=== PATIENT | female | born 1945 | race Two or more races ===

== ENCOUNTER 2019-08-11 15:29 | Emergency (ER) | payer OTHER ==
[2019-08-11 15:41] VITALS: BMI 21.5
--- NOTE | 2019-08-11 16:26 | PDOC ---
History of Present Illness - General Chief Complaint: Injury Stated Complaint: FALL Time Seen by Provider: 08/11/19 16:08 - History of Present Illness Initial Comments: Ms. Jc is a 74 y/o with PMH significant for cirrhosis, s/p left hip replacement after fracture from fall end of June, presenting today s/p fall. Reports that she was at the physical therapist when she didn't fully gain her balance and fell backwards. Hit the back of her head. No LOC. No nausea/ vomiting. Denies headache or neck pain at this time. Denies heart palpitations or chest pain. Denies dizziness. Denies shortness of breath. Denies abdominal pain. Denies dysuria or hematuria. Denies leg swelling. Pt lives at home with family and currently ambulates with assistance ( wheelchair and assisted walking). Past History - Past Medical History Allergies/Adverse Reactions: Allergies Allergy/AdvReac Type Severity Reaction Status Date / Time codeine Allergy Verified 08/11/19 15:37 Home Medications: Ambulatory Orders Aripiprazole 15 mg PO HS 08/11/19 Docusate Sodium [Docusate 100 mg] 1 tab PO TID 08/11/19 Ergocalciferol [Vitamin D2] 50,000 unit PO Q7D@1000 08/11/19 Ferrous Gluconate [Fergon -] 324 mg PO BID 08/11/19 Fluticasone/Vilanterol [Breo Ellipta 100-25 Mcg INH] 1 inh IN DAILY 08/11/19 Furosemide 40 mg PO DAILY 08/11/19 Hydroxyzine HCl 25 mg PO DAILY PRN 08/11/19 Lactulose 30 ml PO PRN PRN 08/11/19 Multivitamin [Multiple Vitamins] 1 tab PO DAILY 08/11/19 Pantoprazole Sodium [Protonix] 40 mg PO DAILY 08/11/19 Rifaximin [Xifaxan] 550 mg PO BID 08/11/19 Sertraline HCl [Zoloft] 100 mg PO DAILY 08/11/19 Thiamine HCl [Vitamin B1] 100 mg PO DAILY 08/11/19 propRANOLol HCL [Inderal -] 10 mg PO TID 08/11/19 - Psycho Social/Smoking Cessation Hx Smoking History: Unknown if ever smoked Hx Alcohol Use: No Drug/Substance Use Hx: No Review of Systems - Review of Systems Comments:: GENERAL/CONSTITUTIONAL: No fever or chills. No weakness._ HEAD, EYES, EARS, NOSE AND THROAT: No change in vision. No change in hearing. No sore throat._ CARDIOVASCULAR: No chest pain or shortness of breath_ RESPIRATORY: Denies cough, hemoptysis_ GASTROINTESTINAL: No nausea, vomiting, diarrhea or constipation._ GENITOURINARY: No dysuria, frequency, or change in urination._ MUSCULOSKELETAL: No joint or muscle swelling or pain. No neck or back pain._ SKIN: No rash_ NEUROLOGIC: No headache, vertigo, loss of consciousness, or change in strength/ sensation._ ENDOCRINE: No increased thirst. No abnormal weight change_ HEMATOLOGIC/LYMPHATIC: No anemia, easy bleeding, or history of blood clots._ ALLERGIC/IMMUNOLOGIC: No hives or skin allergy._ *Physical Exam - Vital Signs Last Vital Signs Temp Pulse Resp BP Pulse Ox 80 20 130/61 94 L 08/11/19 15:39 08/11/19 15:39 08/11/19 15:39 08/11/19 15:39 - Physical Exam GENERAL: Awake, alert, and oriented to person/place/time, in no acute distress_ HEAD: No signs of trauma, normocephalic, atraumatic _ EYES: PERRLA, EOMI, sclera anicteric, conjunctiva clear_ ENT: Hearing grossly normal, nares patent, oropharynx clear without exudates. No uvular deviation. Moist mucosa. NECK: Normal ROM, supple, no lymphadenopathy, JVD, or masses. No c-spine TTP. LUNGS: No distress, speaks in full sentences, clear to auscultation bilaterally _ HEART: Regular rate and rhythm, normal S1 and S2, no murmurs appreciated, peripheral pulses normal and equal bilaterally._ ABDOMEN: Soft, nontender, normoactive bowel sounds. No guarding, no rebound. No masses_ EXTREMITIES: Mild TTP left knee with no obvious deformity or bruising. No hip pain. Pelvis stable. Full passive range of motion, no edema. No clubbing or cyanosis. NEUROLOGICAL: Cranial nerves II through XII grossly intact. Normal speech, no focal sensorimotor deficits. SKIN: Warm, Dry, normal turgor, no rashes or lesions noted_ Medical Decision Making - Medical Decision Making 08/11/19 16:27 74F presenting s/p mechanical fall while at physical therapy today. S/p left hip replacement end of June. Admitted in Jul. for sepsis/multi focal pna. -ct head and neck -XR hip/pelvis and knee 08/11/19 17:49 XR left hip and left knee show no acute fracture. 08/11/19 19:34 CT head negative for acute intra cranial pathology. CT neck negative for fracture. Partial imaging of pulmonary apices showing mild bilateral ground glass attenuation. Pt is on O2 at home. States that she has no shortness of breath. Plan to d/c home with PCP f/u prn. Pt has good social support at home. All questions answered. Return precautions given. Pt and family verbalized understanding and agreement with plan. Discharge - Discharge Information Problems reviewed: Yes Clinical Impression/Diagnosis: Fall Condition: Stable Disposition: HOME - Admission No - Follow up/Referral Referrals: Donald Saravia MD [Staff Physician] - - Patient Discharge Instructions Patient Printed Discharge Instructions: How to Prevent Falls Additional Instructions: Your CT scans and x-rays today did not show any acute fracture or bleed. Please follow up with your primary care doctor as needed. If you experience any new, worsening, or concerning symptoms, please return to the emergency room. - Post Discharge Activity
[2019-08-11 19:29] VITALS: BP 131/75; PULSE 90
--- NOTE | 2019-08-11 19:38 | PDOC ---
Attending Attestation - Resident Resident Name: John Chou - ED Attending Attestation I have performed the following: I have examined & evaluated the patient, The case was reviewed & discussed with the resident, I agree w/resident's findings & plan, Exceptions are as noted - HPI HPI: 08/11/19 19:35 74-year-old female history of cirrhosis recent hip replacement here today status post fall physical therapy patient was a physical therapy had stood up from her wheelchair the physical therapist had turned her back for 1 second the patient fell back and hit her head denies any LOC does have chronic hip pain since her surgery but nothing new since her fall no chest pain no shortness of breath precipitating no dysrhythmia or palpitations. Did not sustain a laceration to the back of her head no other current complaints - Physicial Exam PE: 08/11/19 19:37 Patient is awake alert no acute distress posterior scalp is unremarkable without any hematoma mild tenderness there is no midline cervical spinal tenderness lungs are clear bilaterally heart is regular with any murmurs rubs or gallops abdomen is soft and nontender extremities are warm and well-perfused skin is warm and dry no rash neurologic patient is awake alert and oriented x3 moving all 4 extremities - Medical Decision Making 08/11/19 19:37 74-year-old female history of cirrhosis recent hip replacement status post fall physical therapy plan x-ray of the pelvis and bilateral hips to rule out acute fracture or malalignment of her hardware CT head and cervical spine to rule any intracranial injuries from her fall basic labs and EKG 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
== END 2019-08-11 19:47 | disposition home or self-care (01) ==
LOC: JER 15:29 → FER 15:29 → JER 19:47
DX: Z04.3 Encounter for examination and observation following other accident (principal); K74.60 Unspecified cirrhosis of liver; Z96.642 Presence of left artificial hip joint; Z88.6 Allergy status to analgesic agent
CPT/HCPCS: 70450-TC; 72125-TC; 73523-TC-FY; 73562-TC-LT-FY; 99284-25

== ENCOUNTER 2019-09-03 19:54 | Inpatient (IN) | payer OTHER ==
[2019-09-03 20:09] VITALS: BMI 25.5
[2019-09-03 21:25] LABS: BASO % 0.1 % (0-2.0); EOS % 0.5 % (0-4.5); HEMATOCRIT 44.6 % (32.4-45.2); HEMOGLOBIN 14.7 GM/dL (10.7-15.3); LYMPH % 11.7 % (8-40); MCH 29.7 pg (25.7-33.7); MCHC 32.9 g/dl (32.0-36.0); MEAN CELL VOLUME 90.4 fl (80-96); MEAN PLT VOLUME 10.4 fl (7.5-11.1); MONO % 6.9 % (3.8-10.2); NEUT % 80.8 % (42.8-82.8); PLATELET COUNT 100 K/MM3 (134-434); RBC 4.93 M/mm3 (3.60-5.2); RDW 16.5 % (11.6-15.6); WHITE BLOOD COUNT 11.3 K/mm3 (4.0-10.0)
[2019-09-03 21:50] LABS: ALBUMIN 2.8 g/dl (3.4-5.0); BILIRUBIN,TOTAL 1.2 mg/dL (0.2-1); BLOOD UREA NITROGEN 21.4 mg/dL (7-18); CALCIUM 8.4 mg/dL (8.5-10.1); CREATININE 0.8 mg/dL (0.55-1.3); TOT PROT 6.7 g/dl (6.4-8.2)
[2019-09-03 21:54] LABS: POTASSIUM 2.4 mmol/L (3.5-5.1)
[2019-09-03 21:59] LABS: INR 1.06 (0.83-1.09); PROTHROMBIN TIME (PATIENT) 12.5 SEC (9.7-13.0)
[2019-09-03 22:01] LABS: ACTIVATED PTT 25.6 SECONDS (25.2-36.5)
[2019-09-03] MEDS ORDERED: POTASSIUM CHLORIDE 20 MEQ PREMIX IVPB 100 ML IVPB ONE (22:47)
[2019-09-03 23:04] LABS: MAGNESIUM 1.9 mg/dL (1.8-2.4); PHOSPHOROUS 1.9 mg/dL (2.5-4.9)
[2019-09-03] MEDS ORDERED: SODIUM CHLORIDE 0.9% 500 ML INFUS.BAG IV ONE (23:04)
[2019-09-03] MEDS ORDERED: KCL 10 MEQ IVPB 10 MEQ/100 ML INFUS.BAG IVPB SCH ×2 (23:15→23:56)
[2019-09-03 23:20] LABS: URINE APPEARANCE CLEAR; URINE BILIRUBIN NEGATIVE (NEGATIVE); URINE COLOR YELLOW; URINE GLUCOSE (UA) NEGATIVE (NEGATIVE); URINE KETONE NEGATIVE (NEGATIVE); URINE LEUK ESTERASE NEGATIVE (NEGATIVE); URINE NITRITE NEGATIVE (NEGATIVE); URINE PROTEIN NEGATIVE (NEGATIVE); URINE UROBILINOGEN 0.2 mg/dL (0.2-1.0)
[2019-09-03] MEDS ORDERED: POTASSIUM CHLORIDE ORAL LIQUID 20 MEQ/15 ML ONE (23:24)
[2019-09-03] MEDS ORDERED: KCL 10 MEQ IVPB 20 MEQ/200 ML INFUS.BAG IVPB ONE (23:25)
[2019-09-03] MEDS ORDERED: POTASSIUM CHLORIDE ORAL LIQUID 20 MEQ/15 ML PO ONE (23:54)
[2019-09-04] MEDS ORDERED: LACTULOSE 20 GM/30 ML UDC (FOR ORAL USE ONLY) PO PRN (01:08)
[2019-09-04] MEDS ORDERED: POTASSIUM PHOSPHATE 30 MM in DEXTROSE 5%-WATER - 250 ML IVPB ONE (01:30)
[2019-09-04] MEDS: SODIUM CHLORIDE 1,000 ML IV SCH (01:36)
[2019-09-04] MEDS ORDERED: PATIENT'S OWN MEDICATION (NON-FORMULARY) (Lactulose [Lactulose] 30 ML) PO PRN (01:43)
[2019-09-04] MEDS ORDERED: predniSONE 10 MG TABLET (UD) PO SCH (01:45)
[2019-09-04] MEDS ORDERED: KCL 10 MEQ IVPB 10 MEQ/100 ML INFUS.BAG IVPB ONE ×3 (01:54→17:17)
[2019-09-04] MEDS: KCL 10 MEQ IVPB 10 MEQ/100 ML INFUS.BAG IVPB SCH ×7 (02:01→17:25)
[2019-09-04] MEDS ORDERED: CEFTRIAXONE 2 GM-D5W BAG 2 GM/50 ML BAG IVPB SCH (03:42)
[2019-09-04] MEDS ORDERED: FOLIC ACID 5 MG/1 ML SQ ONE (03:48)
[2019-09-04] MEDS: RIFAXIMIN 550 MG TABLET (UD) PO SCH ×3 (04:00→21:41)
[2019-09-04] MEDS ORDERED: CEFTRIAXONE 2 GM in DEXTROSE 5%-WATER 100 ML IVPB SCH (05:01)
[2019-09-04] MEDS: CEFTRIAXONE 2 GM in DEXTROSE 5%-WATER 100 ML IVPB SCH (06:06)
[2019-09-04 07:41] LABS: ARTERIAL BLD GAS O2 SATURATION 98.8 % (95-98); ARTERIAL BLOOD GAS BASE EXCESS 8.5 meq/l (-2-2); ARTERIAL BLOOD GAS PCO2 41.7 mmHg (35-45); ARTERIAL BLOOD GAS PO2 161 mmHg (80-100)
[2019-09-04 07:54] LABS: ALLENS TEST POSITIVE
[2019-09-04] MEDS ORDERED: SERTRALINE HCL 50 MG TABLET (FP) PO SCH (10:00)
[2019-09-04] MEDS ORDERED: THIAMINE HCL 100 MG TABLET (FP) PO SCH (10:00)
[2019-09-04] MEDS ORDERED: RIFAXIMIN 550 MG TABLET (UD) PO SCH (10:00)
[2019-09-04] MEDS ORDERED: methylPREDNISolone NA SUCC 40 MG/1 ML VIAL ONE (10:25)
[2019-09-04] MEDS ORDERED: THIAMINE HCL 200 MG/2 ML VIAL ONE (10:25)
[2019-09-04] MEDS ORDERED: ENOXAPARIN NA (PORCINE) 40 MG/0.4 ML DISP.SYRIN SQ ONE (10:25)
[2019-09-04] MEDS: THIAMINE HCL 200 MG/2 ML VIAL IVPB SCH (10:51)
[2019-09-04] MEDS: ENOXAPARIN NA (PORCINE) 40 MG/0.4 ML DISP.SYRIN SQ SCH (10:51)
[2019-09-04] MEDS: methylPREDNISolone NA SUCC 40 MG/1 ML VIAL IVPUSH SCH (10:51)
[2019-09-04 11:02] LABS: BASO % 0.1 % (0-2.0); HEMOGLOBIN 12.8 GM/dL (10.7-15.3); LYMPH % 14.1 % (8-40); MCH 29.2 pg (25.7-33.7); MCHC 32.8 g/dl (32.0-36.0); MEAN CELL VOLUME 89.2 fl (80-96); MEAN PLT VOLUME 10.4 fl (7.5-11.1); MONO % 10.4 % (3.8-10.2); NEUT % 74.4 % (42.8-82.8); PLATELET COUNT 93 K/MM3 (134-434); RBC 4.37 M/mm3 (3.60-5.2); WHITE BLOOD COUNT 11.2 K/mm3 (4.0-10.0)
[2019-09-04 11:29] LABS: ALBUMIN 2.2 g/dl (3.4-5.0); BILIRUBIN,TOTAL 0.9 mg/dL (0.2-1); BLOOD UREA NITROGEN 20.3 mg/dL (7-18); CALCIUM 7.8 mg/dL (8.5-10.1); CREATININE 0.5 mg/dL (0.55-1.3); PHOSPHOROUS 2.3 mg/dL (2.5-4.9); TOT PROT 5.5 g/dl (6.4-8.2)
[2019-09-04 11:30] LABS: POTASSIUM 2.6 mmol/L (3.5-5.1)
[2019-09-04] MEDS ORDERED: KCL 10 MEQ IVPB 20 MEQ/200 ML INFUS.BAG IVPB ONE (12:16)
[2019-09-04] MEDS: LACTULOSE 20 GM/30 ML UDC (FOR RECTAL USE ONLY) PR SCH ×2 (15:50→21:18)
[2019-09-04 22:42] LABS: VENOUS BASE EXCESS 7.8 meq/l (-2-2); VENOUS PC02 57.2 mmHg (38-52); VENOUS PH 7.39 (7.31-7.41)
[2019-09-04 22:44] LABS: VENOUS PO2 < 49 mmHg (28-48)
[2019-09-04] MEDS ORDERED: POTASSIUM CHLORIDE ORAL LIQUID 20 MEQ/15 ML PO ONE (22:50)
[2019-09-05] MEDS: SODIUM CHLORIDE 1,000 ML IV SCH (00:15)
[2019-09-05 08:17] LABS: BASO % 0.4 % (0-2.0); EOS % 0.6 % (0-4.5); HEMOGLOBIN 12.2 GM/dL (10.7-15.3); LYMPH % 18.3 % (8-40); MCH 29.7 pg (25.7-33.7); MCHC 33.1 g/dl (32.0-36.0); MEAN CELL VOLUME 89.7 fl (80-96); MEAN PLT VOLUME 10.1 fl (7.5-11.1); MONO % 10.3 % (3.8-10.2); NEUT % 70.4 % (42.8-82.8); PLATELET COUNT 65 K/MM3 (134-434); RBC 4.12 M/mm3 (3.60-5.2); RDW 16.5 % (11.6-15.6); WHITE BLOOD COUNT 9.5 K/mm3 (4.0-10.0)
[2019-09-05] MEDS ORDERED: DEXTROSE 5%-WATER 100 ML IVPB ONE (11:24)
[2019-09-05] MEDS ORDERED: PT OWN MED DRAWER 7, Y5N ONE ×2 (11:24→20:42)
[2019-09-05] MEDS: ENOXAPARIN NA (PORCINE) 40 MG/0.4 ML DISP.SYRIN SQ SCH (11:30)
[2019-09-05] MEDS: LACTULOSE 20 GM/30 ML UDC (FOR ORAL USE ONLY) PO SCH ×4 (11:30→21:03)
[2019-09-05] MEDS: THIAMINE HCL 200 MG/2 ML VIAL IVPB SCH (11:30)
[2019-09-05] MEDS: methylPREDNISolone NA SUCC 40 MG/1 ML VIAL IVPUSH SCH (11:30)
[2019-09-05] MEDS: CEFTRIAXONE 2 GM in DEXTROSE 5%-WATER 100 ML IVPB SCH (11:30)
[2019-09-05] MEDS: LACTULOSE 20 GM/30 ML UDC (FOR RECTAL USE ONLY) PR SCH ×4 (11:47→19:19)
[2019-09-05] MEDS: RIFAXIMIN 550 MG TABLET (UD) PO SCH ×2 (11:47→21:03)
[2019-09-05 13:54] LABS: ALBUMIN 2.3 g/dl (3.4-5.0); BILIRUBIN,TOTAL 1.4 mg/dL (0.2-1); BLOOD UREA NITROGEN 20.9 mg/dL (7-18); CALCIUM 8.1 mg/dL (8.5-10.1); CREATININE 0.4 mg/dL (0.55-1.3); MAGNESIUM 1.9 mg/dL (1.8-2.4); PHOSPHOROUS 2.4 mg/dL (2.5-4.9); POTASSIUM 3.1 mmol/L (3.5-5.1); TOT PROT 5.4 g/dl (6.4-8.2)
[2019-09-05 13:59] LABS: INR 1.14 (0.83-1.09); PROTHROMBIN TIME (PATIENT) 13.5 SEC (9.7-13.0)
[2019-09-05 14:02] LABS: ACTIVATED PTT 28.1 SECONDS (25.2-36.5)
[2019-09-05] MEDS ORDERED: POTASSIUM CHLORIDE TABS 20 MEQ TABLET.ER (FP) PO ONE ×2 (14:15→17:11)
[2019-09-05] MEDS ORDERED: POTASSIUM CHLORIDE ORAL LIQUID 20 MEQ/15 ML PO ONE (16:00)
[2019-09-05] MEDS ORDERED: ALBUTEROL SO4 HFA INHALER IH PRN (17:16)
[2019-09-06] MEDS: SODIUM CHLORIDE 1,000 ML IV SCH (06:54)
[2019-09-06 06:56] LABS: BASO % 0.2 % (0-2.0); EOS % 0.4 % (0-4.5); HEMATOCRIT 37.4 % (32.4-45.2); HEMOGLOBIN 12.4 GM/dL (10.7-15.3); LYMPH % 12.8 % (8-40); MCH 29.7 pg (25.7-33.7); MCHC 33.2 g/dl (32.0-36.0); MEAN CELL VOLUME 89.5 fl (80-96); MONO % 8.6 % (3.8-10.2); PLATELET COUNT 114 K/MM3 (134-434); RBC 4.18 M/mm3 (3.60-5.2); RDW 16.5 % (11.6-15.6); WHITE BLOOD COUNT 11.4 K/mm3 (4.0-10.0)
[2019-09-06 07:35] LABS: ALBUMIN 2.2 g/dl (3.4-5.0); CALCIUM 8.2 mg/dL (8.5-10.1); CREATININE 0.8 mg/dL (0.55-1.3); POTASSIUM 3.4 mmol/L (3.5-5.1); TOT PROT 5.4 g/dl (6.4-8.2)
[2019-09-06] MEDS ORDERED: POTASSIUM CHLORIDE TABS 20 MEQ TABLET.ER (FP) PO ONE (07:39)
[2019-09-06] MEDS ORDERED: DEXTROSE 5%-WATER 100 ML IVPB ONE (08:36)
[2019-09-06] MEDS: LACTULOSE 20 GM/30 ML UDC (FOR RECTAL USE ONLY) PR SCH ×3 (09:15→16:10)
[2019-09-06] MEDS: ENOXAPARIN NA (PORCINE) 40 MG/0.4 ML DISP.SYRIN SQ SCH (10:37)
[2019-09-06] MEDS: CEFTRIAXONE 2 GM in DEXTROSE 5%-WATER 100 ML IVPB SCH (10:37)
[2019-09-06] MEDS: LACTULOSE 20 GM/30 ML UDC (FOR ORAL USE ONLY) PO SCH ×4 (10:41→22:03)
[2019-09-06] MEDS: RIFAXIMIN 550 MG TABLET (UD) PO SCH ×2 (10:41→22:02)
[2019-09-06] MEDS ORDERED: PT OWN MED DRAWER 7, Y5N ONE ×2 (11:11→20:41)
[2019-09-06] MEDS ORDERED: POTASSIUM CHLORIDE ORAL LIQUID 20 MEQ/15 ML PO ONE (11:15)
[2019-09-06] MEDS: THIAMINE HCL 200 MG/2 ML VIAL IVPB SCH (11:48)
[2019-09-06] MEDS: POTASSIUM CHLORIDE TABS 20 MEQ TABLET.ER (FP) PO SCH (16:09)
[2019-09-07] MEDS: SODIUM CHLORIDE 1,000 ML IV SCH ×2 (07:05→22:06)
[2019-09-07 07:56] LABS: BASO % 0.4 % (0-2.0); EOS % 1.8 % (0-4.5); HEMATOCRIT 39.8 % (32.4-45.2); LYMPH % 19.7 % (8-40); MCH 29.7 pg (25.7-33.7); MCHC 32.7 g/dl (32.0-36.0); MEAN CELL VOLUME 90.8 fl (80-96); MEAN PLT VOLUME 10.2 fl (7.5-11.1); MONO % 9.1 % (3.8-10.2); PLATELET COUNT 86 K/MM3 (134-434); RBC 4.38 M/mm3 (3.60-5.2); RDW 16.9 % (11.6-15.6)
[2019-09-07 08:31] LABS: ALBUMIN 2.2 g/dl (3.4-5.0); BILIRUBIN,TOTAL 0.9 mg/dL (0.2-1); BLOOD UREA NITROGEN 17.1 mg/dL (7-18); CALCIUM 8.2 mg/dL (8.5-10.1); CREATININE 0.8 mg/dL (0.55-1.3); POTASSIUM 3.8 mmol/L (3.5-5.1); TOT PROT 5.4 g/dl (6.4-8.2)
[2019-09-07] MEDS ORDERED: DEXTROSE 5%-WATER 100 ML IVPB ONE (10:13)
[2019-09-07] MEDS ORDERED: PT OWN MED DRAWER 7, Y5N ONE ×3 (10:13→21:54)
[2019-09-07] MEDS: ENOXAPARIN NA (PORCINE) 40 MG/0.4 ML DISP.SYRIN SQ SCH (10:16)
[2019-09-07] MEDS: LACTULOSE 20 GM/30 ML UDC (FOR ORAL USE ONLY) PO SCH ×4 (10:16→22:06)
[2019-09-07] MEDS: RIFAXIMIN 550 MG TABLET (UD) PO SCH ×2 (10:17→22:06)
[2019-09-07] MEDS: CEFTRIAXONE 2 GM in DEXTROSE 5%-WATER 100 ML IVPB SCH (12:28)
[2019-09-07 13:40] LABS: BF WBC & OTHER NUCLEATED CELLS 91 /mm3
[2019-09-07 13:48] LABS: BODY FLUID MONOCYTE 35 %
[2019-09-07] MEDS: THIAMINE HCL 200 MG/2 ML VIAL IVPB SCH (14:25)
[2019-09-08 07:30] LABS: BASO % 0.4 % (0-2.0); EOS % 1.8 % (0-4.5); HEMATOCRIT 38.6 % (32.4-45.2); HEMOGLOBIN 12.6 GM/dL (10.7-15.3); LYMPH % 21.3 % (8-40); MCH 29.6 pg (25.7-33.7); MCHC 32.6 g/dl (32.0-36.0); MEAN CELL VOLUME 90.7 fl (80-96); MEAN PLT VOLUME 10.2 fl (7.5-11.1); MONO % 7.2 % (3.8-10.2); NEUT % 69.3 % (42.8-82.8); PLATELET COUNT 69 K/MM3 (134-434); RBC 4.26 M/mm3 (3.60-5.2); RDW 16.9 % (11.6-15.6); WHITE BLOOD COUNT 7.3 K/mm3 (4.0-10.0)
[2019-09-08] MEDS: SODIUM CHLORIDE 1,000 ML IV SCH ×2 (07:31→14:53)
[2019-09-08 07:53] LABS: BLOOD UREA NITROGEN 14.5 mg/dL (7-18); CREATININE 0.7 mg/dL (0.55-1.3); POTASSIUM 3.5 mmol/L (3.5-5.1)
[2019-09-08 07:54] LABS: BILIRUBIN,TOTAL 1.4 mg/dL (0.2-1); CALCIUM 7.8 mg/dL (8.5-10.1)
[2019-09-08] MEDS ORDERED: PT OWN MED DRAWER 7, Y5N ONE (09:11)
[2019-09-08] MEDS ORDERED: DEXTROSE 5%-WATER 100 ML IVPB ONE (09:12)
[2019-09-08] MEDS: CEFTRIAXONE 2 GM in DEXTROSE 5%-WATER 100 ML IVPB SCH (09:47)
[2019-09-08] MEDS: THIAMINE HCL 200 MG/2 ML VIAL IVPB SCH (09:51)
[2019-09-08] MEDS: LACTULOSE 20 GM/30 ML UDC (FOR ORAL USE ONLY) PO SCH ×2 (09:51→21:21)
[2019-09-08] MEDS: ENOXAPARIN NA (PORCINE) 40 MG/0.4 ML DISP.SYRIN SQ SCH (09:51)
[2019-09-08] MEDS: RIFAXIMIN 550 MG TABLET (UD) PO SCH ×2 (09:52→21:21)
[2019-09-08] MEDS ORDERED: LACTULOSE 20 GM/30 ML UDC (FOR ORAL USE ONLY) PO PRN (11:40)
[2019-09-08] MEDS: SPIRONOLACTONE 25 MG TABLET PO SCH (12:38)
[2019-09-08] MEDS: FUROSEMIDE 40 MG TABLET (FP) PO SCH (12:38)
[2019-09-09] MEDS: SODIUM CHLORIDE 1,000 ML IV SCH (05:40)
[2019-09-09] MEDS: LACTULOSE 20 GM/30 ML UDC (FOR ORAL USE ONLY) PO SCH ×3 (06:35→21:01)
[2019-09-09 07:38] LABS: BASO % 0.6 % (0-2.0); EOS % 1.9 % (0-4.5); HEMATOCRIT 38.3 % (32.4-45.2); HEMOGLOBIN 12.5 GM/dL (10.7-15.3); LYMPH % 23.5 % (8-40); MCH 29.5 pg (25.7-33.7); MCHC 32.6 g/dl (32.0-36.0); MEAN CELL VOLUME 90.7 fl (80-96); MEAN PLT VOLUME 10.2 fl (7.5-11.1); MONO % 6.1 % (3.8-10.2); NEUT % 67.9 % (42.8-82.8); PLATELET COUNT 69 K/MM3 (134-434); RBC 4.22 M/mm3 (3.60-5.2); RDW 17.4 % (11.6-15.6); WHITE BLOOD COUNT 7.2 K/mm3 (4.0-10.0)
[2019-09-09] MEDS ORDERED: PT OWN MED DRAWER 7, Y5N ONE ×3 (08:34→20:54)
[2019-09-09 08:56] LABS: BILIRUBIN,TOTAL 1.2 mg/dL (0.2-1); BLOOD UREA NITROGEN 14.7 mg/dL (7-18); CALCIUM 8.1 mg/dL (8.5-10.1); CREATININE 0.7 mg/dL (0.55-1.3); POTASSIUM 3.4 mmol/L (3.5-5.1)
[2019-09-09] MEDS: THIAMINE HCL 200 MG/2 ML VIAL IVPB SCH (09:11)
[2019-09-09] MEDS: RIFAXIMIN 550 MG TABLET (UD) PO SCH ×2 (09:11→21:00)
[2019-09-09] MEDS: FUROSEMIDE 40 MG TABLET (FP) PO SCH (09:11)
[2019-09-09] MEDS: ENOXAPARIN NA (PORCINE) 40 MG/0.4 ML DISP.SYRIN SQ SCH (09:11)
[2019-09-09] MEDS: SPIRONOLACTONE 25 MG TABLET PO SCH (09:11)
[2019-09-09] MEDS ORDERED: POTASSIUM CHLORIDE ORAL LIQUID 20 MEQ/15 ML PO ONE (11:30)
[2019-09-09] MEDS ORDERED: levETIRAcetam 500 MG/5 ML INJECTION VIAL IVPB ONE ×2 (20:22→20:24)
[2019-09-09] MEDS ORDERED: POTASSIUM CHLORIDE 20 MEQ PREMIX IVPB 100 ML IVPB ONE (20:26)
[2019-09-09] MEDS ORDERED: POTASSIUM CHLORIDE TABS 20 MEQ TABLET.ER (FP) PO ONE (20:27)
[2019-09-09] MEDS: KCL 10 MEQ IVPB 10 MEQ/100 ML INFUS.BAG IVPB SCH ×2 (20:55→22:29)
[2019-09-09 21:53] LABS: BASO % 0.4 % (0-2.0); EOS % 0.5 % (0-4.5); HEMATOCRIT 39.3 % (32.4-45.2); HEMOGLOBIN 12.8 GM/dL (10.7-15.3); LYMPH % 13.5 % (8-40); MCH 29.5 pg (25.7-33.7); MCHC 32.6 g/dl (32.0-36.0); MEAN CELL VOLUME 90.7 fl (80-96); MEAN PLT VOLUME 10.1 fl (7.5-11.1); MONO % 5.3 % (3.8-10.2); NEUT % 80.3 % (42.8-82.8); PLATELET COUNT 67 K/MM3 (134-434); RBC 4.33 M/mm3 (3.60-5.2); RDW 17.6 % (11.6-15.6); WHITE BLOOD COUNT 7.5 K/mm3 (4.0-10.0)
[2019-09-09 22:22] LABS: BLOOD UREA NITROGEN 12.8 mg/dL (7-18); CALCIUM 8.2 mg/dL (8.5-10.1); CREATININE 0.8 mg/dL (0.55-1.3); MAGNESIUM 1.8 mg/dL (1.8-2.4); PHOSPHOROUS 2.3 mg/dL (2.5-4.9); POTASSIUM 4.2 mmol/L (3.5-5.1); TOT PROT 5.1 g/dl (6.4-8.2)
[2019-09-10] MEDS: LACTULOSE 20 GM/30 ML UDC (FOR ORAL USE ONLY) PO SCH ×3 (06:20→22:04)
[2019-09-10 07:38] LABS: BASO % 0.4 % (0-2.0); EOS % 0.6 % (0-4.5); HEMATOCRIT 37.6 % (32.4-45.2); HEMOGLOBIN 12.3 GM/dL (10.7-15.3); MCH 29.6 pg (25.7-33.7); MCHC 32.8 g/dl (32.0-36.0); MEAN CELL VOLUME 90.3 fl (80-96); PLATELET COUNT 63 K/MM3 (134-434); RBC 4.16 M/mm3 (3.60-5.2); RDW 17.4 % (11.6-15.6); WHITE BLOOD COUNT 7.8 K/mm3 (4.0-10.0)
[2019-09-10 07:42] LABS: INR 1.15 (0.83-1.09); PROTHROMBIN TIME (PATIENT) 13.6 SEC (9.7-13.0)
[2019-09-10 07:59] LABS: BILIRUBIN,TOTAL 1.4 mg/dL (0.2-1); BLOOD UREA NITROGEN 13.4 mg/dL (7-18); CALCIUM 8.4 mg/dL (8.5-10.1); CREATININE 0.7 mg/dL (0.55-1.3); POTASSIUM 4.7 mmol/L (3.5-5.1)
[2019-09-10] MEDS ORDERED: PT OWN MED DRAWER 7, Y5N ONE (09:21)
[2019-09-10] MEDS: THIAMINE HCL 200 MG/2 ML VIAL IVPB SCH (09:24)
[2019-09-10] MEDS: SPIRONOLACTONE 25 MG TABLET PO SCH (09:24)
[2019-09-10] MEDS: ENOXAPARIN NA (PORCINE) 40 MG/0.4 ML DISP.SYRIN SQ SCH (09:24)
[2019-09-10] MEDS: RIFAXIMIN 550 MG TABLET (UD) PO SCH ×2 (09:24→22:04)
[2019-09-10] MEDS: FUROSEMIDE 40 MG TABLET (FP) PO SCH (09:26)
[2019-09-10] MEDS ORDERED: ALBUTEROL SO4 2.5/IPRATROPIUM 0.5 INH SOL 3 ML VIAL.NEB. NEB PRN (13:11)
[2019-09-10] MEDS ORDERED: [UNRECOGNIZED DRUG - OTHER] MC SCH (13:15)
[2019-09-10] MEDS ORDERED: ALBUTEROL SO4 HFA INHALER IH SCH (13:15)
[2019-09-10] MEDS ORDERED: DOCUSATE SODIUM 100 MG CAPSULE (FP) PO SCH (14:00)
[2019-09-10] MEDS ORDERED: ALBUTEROL SO4 0.083% IH SOL 2.5 MG/3 ML VIAL.NEB. NEB PRN (15:26)
[2019-09-10] MEDS: FERROUS GLUCONATE 324 MG TAB (FP) PO SCH (17:48)
[2019-09-10] MEDS ORDERED: ONDANSETRON 4 MG/2 ML VIAL IVPUSH PRN (18:04)
[2019-09-10] MEDS ORDERED: FERROUS GLUCONATE 324 MG TAB (FP) PO SCH (22:00)
[2019-09-10] MEDS: DOCUSATE SODIUM 100 MG CAPSULE (FP) PO SCH (22:04)
[2019-09-11] MEDS: LACTULOSE 20 GM/30 ML UDC (FOR ORAL USE ONLY) PO SCH ×2 (05:05→21:32)
[2019-09-11] MEDS: DOCUSATE SODIUM 100 MG CAPSULE (FP) PO SCH ×3 (05:09→21:32)
[2019-09-11 08:48] LABS: BASO % 0.2 % (0-2.0); EOS % 0.2 % (0-4.5); HEMATOCRIT 39.9 % (32.4-45.2); HEMOGLOBIN 12.8 GM/dL (10.7-15.3); LYMPH % 15.8 % (8-40); MCH 29.1 pg (25.7-33.7); MEAN PLT VOLUME 9.9 fl (7.5-11.1); MONO % 6.1 % (3.8-10.2); NEUT % 77.7 % (42.8-82.8); PLATELET COUNT 83 K/MM3 (134-434); RBC 4.38 M/mm3 (3.60-5.2); RDW 17.9 % (11.6-15.6); WHITE BLOOD COUNT 11.6 K/mm3 (4.0-10.0)
[2019-09-11] MEDS: RIFAXIMIN 550 MG TABLET (UD) PO SCH ×2 (09:13→21:32)
[2019-09-11] MEDS: SPIRONOLACTONE 25 MG TABLET PO SCH (09:13)
[2019-09-11] MEDS: predniSONE 10 MG TABLET (UD) PO SCH (09:14)
[2019-09-11] MEDS: ENOXAPARIN NA (PORCINE) 40 MG/0.4 ML DISP.SYRIN SQ SCH (09:14)
[2019-09-11] MEDS: THIAMINE HCL 200 MG/2 ML VIAL IVPB SCH (09:14)
[2019-09-11] MEDS: FUROSEMIDE 40 MG TABLET (FP) PO SCH (09:14)
[2019-09-11] MEDS: MULTIVITAMINS (DAILY MVI) TABLET (FP) PO SCH (09:14)
[2019-09-11] MEDS: FERROUS GLUCONATE 324 MG TAB (FP) PO SCH ×2 (09:14→18:32)
[2019-09-11 09:48] LABS: ALBUMIN 2.3 g/dl (3.4-5.0); BILIRUBIN,TOTAL 1.2 mg/dL (0.2-1); BLOOD UREA NITROGEN 13.5 mg/dL (7-18); CALCIUM 8.6 mg/dL (8.5-10.1); CREATININE 0.7 mg/dL (0.55-1.3); POTASSIUM 4.2 mmol/L (3.5-5.1); TOT PROT 5.5 g/dl (6.4-8.2)
[2019-09-11] MEDS ORDERED: MULTIVITAMINS (DAILY MVI) TABLET (FP) PO SCH (10:00)
[2019-09-11] MEDS ORDERED: predniSONE 10 MG TABLET (UD) PO SCH (10:00)
[2019-09-11] MEDS ORDERED: LORazepam 2 MG/ML SDV VIAL ONE (14:28)
[2019-09-11] MEDS ORDERED: levETIRAcetam 500 MG/5 ML INJECTION VIAL IVPB ONE (14:28)
[2019-09-11] MEDS: levETIRAcetam 500 MG/5 ML INJECTION VIAL IVPB SCH (21:32)
[2019-09-12] MEDS: DOCUSATE SODIUM 100 MG CAPSULE (FP) PO SCH ×3 (07:13→23:17)
[2019-09-12 08:04] LABS: BASO % 0.4 % (0-2.0); EOS % 2.4 % (0-4.5); HEMOGLOBIN 11.1 GM/dL (10.7-15.3); LYMPH % 22.4 % (8-40); MCH 29.9 pg (25.7-33.7); MCHC 32.8 g/dl (32.0-36.0); MEAN CELL VOLUME 91.1 fl (80-96); MEAN PLT VOLUME 9.7 fl (7.5-11.1); MONO % 8.7 % (3.8-10.2); NEUT % 66.1 % (42.8-82.8); PLATELET COUNT 61 K/MM3 (134-434); RBC 3.73 M/mm3 (3.60-5.2); RDW 18.2 % (11.6-15.6)
[2019-09-12 08:42] LABS: ALBUMIN 2.1 g/dl (3.4-5.0); BILIRUBIN,TOTAL 1.2 mg/dL (0.2-1); BLOOD UREA NITROGEN 14.1 mg/dL (7-18); CALCIUM 8.1 mg/dL (8.5-10.1); CREATININE 0.8 mg/dL (0.55-1.3)
[2019-09-12] MEDS: LACTULOSE 20 GM/30 ML UDC (FOR ORAL USE ONLY) PO SCH ×2 (09:46→23:18)
[2019-09-12] MEDS: levETIRAcetam 500 MG/5 ML INJECTION VIAL IVPB SCH ×2 (09:46→23:15)
[2019-09-12] MEDS: THIAMINE HCL 200 MG/2 ML VIAL IVPB SCH (09:46)
[2019-09-12] MEDS: ENOXAPARIN NA (PORCINE) 40 MG/0.4 ML DISP.SYRIN SQ SCH (09:46)
[2019-09-12] MEDS: SPIRONOLACTONE 25 MG TABLET PO SCH (09:47)
[2019-09-12] MEDS: RIFAXIMIN 550 MG TABLET (UD) PO SCH ×2 (09:47→23:17)
[2019-09-12] MEDS: MULTIVITAMINS (DAILY MVI) TABLET (FP) PO SCH (09:49)
[2019-09-12] MEDS: predniSONE 10 MG TABLET (UD) PO SCH (09:49)
[2019-09-12] MEDS: FUROSEMIDE 40 MG TABLET (FP) PO SCH (09:49)
[2019-09-12] MEDS: FERROUS GLUCONATE 324 MG TAB (FP) PO SCH ×2 (09:49→17:48)
[2019-09-13] MEDS: DOCUSATE SODIUM 100 MG CAPSULE (FP) PO SCH ×3 (05:47→21:27)
[2019-09-13 08:23] LABS: BASO % 0.4 % (0-2.0); EOS % 1.8 % (0-4.5); HEMATOCRIT 33.8 % (32.4-45.2); HEMOGLOBIN 10.9 GM/dL (10.7-15.3); LYMPH % 26.9 % (8-40); MCH 29.9 pg (25.7-33.7); MCHC 32.4 g/dl (32.0-36.0); MEAN CELL VOLUME 92.1 fl (80-96); MEAN PLT VOLUME 10.2 fl (7.5-11.1); MONO % 8.5 % (3.8-10.2); NEUT % 62.4 % (42.8-82.8); PLATELET COUNT 66 K/MM3 (134-434); RBC 3.66 M/mm3 (3.60-5.2); WHITE BLOOD COUNT 9.2 K/mm3 (4.0-10.0)
[2019-09-13 08:49] LABS: ALBUMIN 2.2 g/dl (3.4-5.0); BILIRUBIN,TOTAL 1.1 mg/dL (0.2-1); BLOOD UREA NITROGEN 13.4 mg/dL (7-18); CALCIUM 8.1 mg/dL (8.5-10.1); CREATININE 0.8 mg/dL (0.55-1.3); POTASSIUM 3.3 mmol/L (3.5-5.1); TOT PROT 5.2 g/dl (6.4-8.2)
[2019-09-13] MEDS: SPIRONOLACTONE 25 MG TABLET PO SCH (09:48)
[2019-09-13] MEDS: FUROSEMIDE 40 MG TABLET (FP) PO SCH (09:48)
[2019-09-13] MEDS: MULTIVITAMINS (DAILY MVI) TABLET (FP) PO SCH (09:48)
[2019-09-13] MEDS: FERROUS GLUCONATE 324 MG TAB (FP) PO SCH ×2 (09:48→18:11)
[2019-09-13] MEDS: predniSONE 10 MG TABLET (UD) PO SCH (09:48)
[2019-09-13] MEDS: RIFAXIMIN 550 MG TABLET (UD) PO SCH ×2 (09:48→21:26)
[2019-09-13] MEDS: ENOXAPARIN NA (PORCINE) 40 MG/0.4 ML DISP.SYRIN SQ SCH (09:49)
[2019-09-13] MEDS: THIAMINE HCL 200 MG/2 ML VIAL IVPB SCH (09:49)
[2019-09-13] MEDS: LACTULOSE 20 GM/30 ML UDC (FOR ORAL USE ONLY) PO SCH ×2 (09:49→21:26)
[2019-09-13] MEDS: levETIRAcetam 500 MG/5 ML INJECTION VIAL IVPB SCH ×2 (09:49→21:27)
[2019-09-13 17:08] LABS: HEP B CORE AB, TOT Negative (Negative)
[2019-09-13] MEDS ORDERED: POTASSIUM CHLORIDE TABS 20 MEQ TABLET.ER (FP) PO ONE (18:45)
[2019-09-14] MEDS: DOCUSATE SODIUM 100 MG CAPSULE (FP) PO SCH ×3 (05:29→21:19)
[2019-09-14] MEDS: ALBUTEROL SO4 2.5/IPRATROPIUM 0.5 INH SOL 3 ML VIAL.NEB. NEB PRN (06:17)
[2019-09-14 09:00] LABS: ALBUMIN 2.3 g/dl (3.4-5.0); BILIRUBIN,TOTAL 1.1 mg/dL (0.2-1); BLOOD UREA NITROGEN 12.9 mg/dL (7-18); CALCIUM 8.1 mg/dL (8.5-10.1); CREATININE 0.7 mg/dL (0.55-1.3); MAGNESIUM 1.6 mg/dL (1.8-2.4); POTASSIUM 3.9 mmol/L (3.5-5.1); TOT PROT 5.4 g/dl (6.4-8.2)
[2019-09-14] MEDS: levETIRAcetam 500 MG/5 ML INJECTION VIAL IVPB SCH ×2 (10:42→21:20)
[2019-09-14] MEDS: THIAMINE HCL 200 MG/2 ML VIAL IVPB SCH (10:42)
[2019-09-14] MEDS: LACTULOSE 20 GM/30 ML UDC (FOR ORAL USE ONLY) PO SCH ×2 (10:42→21:19)
[2019-09-14] MEDS: RIFAXIMIN 550 MG TABLET (UD) PO SCH ×2 (10:43→21:19)
[2019-09-14] MEDS: predniSONE 10 MG TABLET (UD) PO SCH (10:43)
[2019-09-14] MEDS: FUROSEMIDE 40 MG TABLET (FP) PO SCH (10:43)
[2019-09-14] MEDS: SPIRONOLACTONE 25 MG TABLET PO SCH (10:43)
[2019-09-14] MEDS: FERROUS GLUCONATE 324 MG TAB (FP) PO SCH ×2 (10:43→16:54)
[2019-09-14] MEDS: MULTIVITAMINS (DAILY MVI) TABLET (FP) PO SCH (10:43)
[2019-09-14] MEDS: ENOXAPARIN NA (PORCINE) 40 MG/0.4 ML DISP.SYRIN SQ SCH (10:43)
[2019-09-14] MEDS ORDERED: SIMETHICONE 80 MG TAB.CHEW (FP) PO PRN (15:27)
[2019-09-14] MEDS ORDERED: MAGNESIUM OXIDE 400 MG TABLET (FP) PO ONE (16:30)
[2019-09-14] MEDS: TAMSULOSIN HCL 0.4 MG CAP PO SCH (21:31)
[2019-09-15] MEDS ORDERED: PT OWN MED DRAWER 7, Y5N ONE (04:35)
[2019-09-15] MEDS: DOCUSATE SODIUM 100 MG CAPSULE (FP) PO SCH ×2 (05:59→13:56)
[2019-09-15 07:56] LABS: HEMATOCRIT 29.7 % (32.4-45.2); HEMOGLOBIN 9.9 GM/dL (10.7-15.3); MCH 30.1 pg (25.7-33.7); MCHC 33.3 g/dl (32.0-36.0); MEAN CELL VOLUME 90.5 fl (80-96); MEAN PLT VOLUME 10.3 fl (7.5-11.1); PLATELET COUNT 80 K/MM3 (134-434); RBC 3.28 M/mm3 (3.60-5.2); RDW 19.5 % (11.6-15.6); WHITE BLOOD COUNT 8.6 K/mm3 (4.0-10.0)
[2019-09-15] MEDS: ALBUTEROL SO4 2.5/IPRATROPIUM 0.5 INH SOL 3 ML VIAL.NEB. NEB PRN (08:13)
[2019-09-15 08:21] LABS: BLOOD UREA NITROGEN 16.4 mg/dL (7-18); CALCIUM 7.8 mg/dL (8.5-10.1); CREATININE 0.7 mg/dL (0.55-1.3); MAGNESIUM 1.8 mg/dL (1.8-2.4); POTASSIUM 4.2 mmol/L (3.5-5.1)
[2019-09-15] MEDS: predniSONE 10 MG TABLET (UD) PO SCH (09:38)
[2019-09-15] MEDS: TAMSULOSIN HCL 0.4 MG CAP PO SCH (09:38)
[2019-09-15] MEDS: MULTIVITAMINS (DAILY MVI) TABLET (FP) PO SCH (09:40)
[2019-09-15] MEDS: RIFAXIMIN 550 MG TABLET (UD) PO SCH (09:40)
[2019-09-15] MEDS: FERROUS GLUCONATE 324 MG TAB (FP) PO SCH ×2 (09:40→17:08)
[2019-09-15] MEDS: ENOXAPARIN NA (PORCINE) 40 MG/0.4 ML DISP.SYRIN SQ SCH (09:40)
[2019-09-15] MEDS: FUROSEMIDE 40 MG TABLET (FP) PO SCH (09:40)
[2019-09-15] MEDS: LACTULOSE 20 GM/30 ML UDC (FOR ORAL USE ONLY) PO SCH (09:41)
[2019-09-15] MEDS: SPIRONOLACTONE 25 MG TABLET PO SCH (09:42)
[2019-09-15] MEDS ORDERED: THIAMINE HCL 100 MG TABLET (FP) PO SCH (10:00)
[2019-09-15] MEDS ORDERED: levETIRAcetam 500 MG TABLET (FP) PO SCH (10:15)
[2019-09-15 15:00] VITALS: BP 99/57; PULSE 95; TEMP 97.4
[2019-09-17] MEDS ORDERED: ERGOCALCIFEROL (VIT D2) 50,000 UNIT (1.25 MG) CAPSULE PO SCH ×2 (10:00)
== END 2019-09-15 18:49 | disposition home health service (06) | DRG 433 ==
LOC: JER 19:54 → JERBED 23:53 → J4S 09-05 02:24 → J7W 09-10 14:51
PROVIDERS: ADMIT Internal Medicine; ATTEND Internal Medicine
PROC: 0W9G3ZX Drainage of Peritoneal Cavity, Percutaneous Approach, Diagnostic (ICD-10-PCS; principal; 2019-09-07)
DX: K70.31 Alcoholic cirrhosis of liver with ascites (principal); J84.9 Interstitial pulmonary disease, unspecified; E87.2 Acidosis; K72.90 Hepatic failure, unspecified without coma; E87.6 Hypokalemia; E78.5 Hyperlipidemia, unspecified; E83.42 Hypomagnesemia; D72.829 Elevated white blood cell count, unspecified; E88.09 Other disorders of plasma-protein metabolism, not elsewhere classified; J44.9 Chronic obstructive pulmonary disease, unspecified; I50.9 Heart failure, unspecified; G62.9 Polyneuropathy, unspecified; I11.0 Hypertensive heart disease with heart failure; R33.9 Retention of urine, unspecified; G20 Parkinson's disease; G40.909 Epilepsy, unspecified, not intractable, without status epilepticus; Z99.81 Dependence on supplemental oxygen
CPT/HCPCS: 36415; 36600; 70450-TC; 71045-TC-FY; 74018-TC-FY; 74178-TC; 76700-TC; 76942-TC; 80048; 80053; 81003; 82042; 82140; 82150; 82465; 82550; 82607; 82728; 82803; 82945; 82962; 83010; 83605; 83615; 83735; 83986; 84100; 84132; 84157; 84443; 84478; 84484; 85025; 85027; 85610; 85730; 86593; 86704; 86706; 86707; 86708; 86709; 86803; 87040; 87070; 87075; 87086; 87102; 87116; 87205; 87206; 87210; 87340; 87633; 87798; 87899; 93005; 93010; 94640; 97116-GP; 97161-GP; 99285-25; Q9967; U0002